=== PATIENT | female | born 1965 | race Caucasian/White ===

== ENCOUNTER → 2017-02-21 | Outpatient (CLI) | payer BC | LOC: MC.RAD 15:20 | DX: Z12.31 Encounter for screening mammogram for malignant neoplasm of breast (principal); N63 Unspecified lump in breast ==

== ENCOUNTER → 2017-02-27 | Outpatient (CLI) | payer BC | LOC: MC.RAD 13:18 | DX: Z12.39 Encounter for other screening for malignant neoplasm of breast (principal) ==

== ENCOUNTER → 2019-04-22 | Outpatient (CLI) | payer BC | LOC: MC.RAD 08:17 | DX: Z12.31 Encounter for screening mammogram for malignant neoplasm of breast (principal) ==

== ENCOUNTER → 2021-01-21 | Outpatient (CLI) | payer BC | LOC: MC.RAD 09:23 | DX: Z12.31 Encounter for screening mammogram for malignant neoplasm of breast (principal) ==

== ENCOUNTER → 2022-06-02 | Outpatient (CLI) | payer BC | LOC: MC.RAD 09:58 | DX: Z12.31 Encounter for screening mammogram for malignant neoplasm of breast (principal); R92.8 Other abnormal and inconclusive findings on diagnostic imaging of breast ==

== ENCOUNTER → 2022-06-08 | Outpatient (CLI) | payer BC | LOC: MC.RAD 12:44 | DX: N64.89 Other specified disorders of breast (principal) ==

== ENCOUNTER → 2024-04-01 | Outpatient (CLI) | payer OTHER | LOC: MC.RAD 09:06 | DX: Z12.31 Encounter for screening mammogram for malignant neoplasm of breast (principal) ==